=== PATIENT | male | born 1990 | race African-American/Black ===

== ENCOUNTER 2017-05-09 12:37 | Emergency (ER) | payer SELFPAY ==
[2017-05-09 12:39] VITALS: BP 141/82; PULSE 76; RESP 14; TEMP 98.1; O2SAT 99
[2017-05-09] MEDS ORDERED: FLUT1SPR5 EACH NARE (15:05)
--- NOTE | 2017-05-09 15:08 | PD ---
HPI Chief Complaint: Cold / Flu Symptoms Time Seen by Provider: 14:26 Travel History International Travel<30 days: No Contact w/Intl Traveler<30days: No Traveled to known affect area: No History of Present Illness HPI 26-year-old male patient presents emergency department for evaluation of body aches, sore throat, cough, right ear pressure and runny nose that started yesterday. Patient states he is coughing up phlegm intermittently. Patient denies any fever. Patient denies any abdominal pain, nausea, vomiting, diarrhea. Patient has no major medical history. He does not take any daily medication. His girlfriend has been sick with the same symptoms the previous week. Patient is requesting a work note since he missed work today. [facility] Social History Tobacco Use: No Allergies-Medications (Allergen,Severity, Reaction): Coded Allergies: No Known Allergies (Verified Allergy, Unknown, 05/09/17) Reported Meds & Prescriptions Reported Meds & Active Scripts Active Flonase Nasal [place] (Fluticasone Nasal [place]) 50 Mcg/Act [place] 50 Mcg EACH NARE BID Review of Systems Except as stated in HPI: all other systems reviewed are Neg Physical Exam Narrative GENERAL: Well-nourished, well-developed 26-year-old male patient in no acute distress. Nontoxic appearing. SKIN: Focused skin assessment warm/dry. HEAD: Normocephalic. Atraumatic. EYES: No scleral icterus. No injection or drainage. EARS: Bilateral pinnae and external canals appear within normal limits. Bilateral tympanic membranes without erythema, dullness or perforation. NECK: Supple, trachea midline. No JVD or lymphadenopathy. THROAT: Mild pharyngeal injection, No exudates, or tonsillar hypertrophy. Airway is patent. ENT: Mucosa pink and moist. No erythema or exudates. No uvular edema. No uvular , palatal, or tonsillar deviation. Airway patent. Nasal turbinates appear hypertrophic with small amount of purulent drainage. CARDIOVASCULAR: Regular rate and rhythm without murmurs, gallops, or rubs. RESPIRATORY: Breath sounds equal bilaterally. No accessory muscle use. GASTROINTESTINAL: Abdomen soft, non-tender, nondistended. Data Data Last Documented VS Vital Signs Date Time Temp Pulse Resp B/P (MAP) Pulse Ox O2 Delivery O2 Flow Rate FiO2 05/09/17 12:39 98.1 76 14 141/82 (101) 99 Orders Orders Ed Discharge Order (05/09/17 15:08) MDM Medical Decision Making Medical Screen Exam Complete: Yes Emergency Medical Condition: Yes Differential Diagnosis Differential diagnoses include but not limited to URI, pharyngitis, viral syndrome, bronchitis, otitis media Narrative Course Upon physical exam it is noted that the patient's symptoms and findings are consistent with viral upper respiratory infection. The patient will be given Flonase for nasal congestion and discharged home with instructions for supportive care for viral symptoms and to return to the emergency department any worsening condition. Diagnosis Primary Impression: Upper respiratory infection Qualified Codes: J06.9 - Acute upper respiratory infection, unspecified Referrals: Primary Care Physician Patient Instructions: General Instructions, Upper Respiratory Infection (ED) Departure Forms: Tests/Procedures, Work Release Enter return to work date: May 13, 2017 Additional Instructions: Please return to emergency department if your symptoms return or worsen. Follow up with your primary care provider. Take medications as prescribed. Alternate Ibuprofen and Tylenol as needed for pain or fevers. Supportive care, get enough rest, stay hydrated, diet as tolerated. Med/Other Pt SpecificInfo: Prescription(s) given Scripts Fluticasone Nasal [place] (Flonase Nasal [place]) 50 Mcg/Act [place] 50 MCG EACH NARE BID for Allergies, #1 BOTTLE 0 Refills Prov: Che Bailey 05/09/17 Disposition: 01 DISCHARGE HOME Condition: Stable Che Bailey May 09, 2017 15:08
== END 2017-05-09 15:26 | disposition home or self-care (01) ==
LOC: NEPK 12:37
DX: J06.9 Acute upper respiratory infection, unspecified (principal)
CPT/HCPCS: 99283